=== PATIENT | male | born 1965 | race African-American/Black ===

== ENCOUNTER 2018-04-17 20:22 | Emergency (ER) | payer BC, OTHER ==
--- NOTE | 2018-04-17 20:25 | PDOC ---
History of Present Illness - General History Source: Patient Exam Limitations: No Limitations - History of Present Illness Initial Comments: 04/17/18 20:54 Patient is a 53 year old male with no significant past medical history who presents to the ED with complaints of chest discomfort that began x2 weeks ago. Patient reports chest discomfort that he states is a compression sensation that began x2 weeks ago and has shown no signs of subsiding. He reports sensation is only starts in the afternoon while he is resting. Patient reports being active and exercising regularly but denies any discomfort during that time. He reports feeling the sensation this evening, stating that he checked his heart rate during the episode and noticed a change, prompting him to come into the ED for further evaluation. Denies chest pain, Sob. Denies nausea, vomiting, Denies contact with sick individuals, out of state travelling. Denies fevers, chills. Denies trauma to affected area. Denies any other symptoms. Allergies: None Social history: No smoking. No alcohol. No illicit drugs. Surgical history: None PMD: Dr. Debby Chung <Urban Zazueta - Last Filed: 04/17/18 20:54> <Shira Palencia - Last Filed: 04/18/18 01:12> - General Chief Complaint: Irregular Heart Beat Stated Complaint: IRREGULAR HEART BEAT X 2 WEEKS Time Seen by Provider: 04/17/18 20:25 Past History <Urban Zazueta - Last Filed: 04/17/18 20:54> - Suicide/Smoking/Psychosocial Hx Smoking History: Never smoked <Shira Palencia - Last Filed: 04/18/18 01:12> - Past Medical History Allergies/Adverse Reactions: Allergies Allergy/AdvReac Type Severity Reaction Status Date / Time No Known Allergies Allergy Verified 04/17/18 20:24 Home Medications: Ambulatory Orders NK [No Known Home Medication] 08/25/15 Review of Systems - Review of Systems Able to Perform ROS?: Yes Comments:: 04/17/18 20:54 GENERAL/CONSTITUTIONAL: No fever or chills. No weakness. HEAD, EYES, EARS, NOSE AND THROAT: No change in vision. No ear pain or discharge. No sore throat. CARDIOVASCULAR: +Left chest discomfort. No chest pain or shortness of breath. RESPIRATORY: No cough, wheezing, or hemoptysis. GASTROINTESTINAL: No nausea, vomiting, diarrhea or constipation. GENITOURINARY: No dysuria, frequency, or change in urination. MUSCULOSKELETAL: No joint or muscle swelling or pain. No neck or back pain. SKIN: No rash NEUROLOGIC: No headache, vertigo, loss of consciousness, or change in strength/ sensation. ENDOCRINE: No increased thirst. No abnormal weight change. HEMATOLOGIC/LYMPHATIC: No anemia, easy bleeding, or history of blood clots. ALLERGIC/IMMUNOLOGIC: No hives or skin allergy. <Urban Zazueta - Last Filed: 04/17/18 20:54> *Physical Exam - Vital Signs Last Vital Signs Temp Pulse Resp BP Pulse Ox 97.7 F 62 16 155/60 97 04/17/18 20:25 04/17/18 20:25 04/17/18 20:25 04/17/18 20:25 04/17/18 20:25 - Physical Exam Comments: 04/17/18 20:55 GENERAL: Awake, alert, and fully oriented, in no acute distress HEAD: No signs of trauma EYES: PERRLA, EOMI, sclera anicteric, conjunctiva clear ENT: Auricles normal inspection, hearing grossly normal, nares patent, oropharynx clear without exudates. Moist mucosa NECK: Normal ROM, supple, no lymphadenopathy, JVD, or masses LUNGS: Breath sounds equal, clear to auscultation bilaterally. No wheezes, and no crackles HEART: Regular rate and rhythm, normal S1 and S2, no murmurs, rubs or gallops ABDOMEN: Soft, nontender, normoactive bowel sounds. No guarding, no rebound. No masses EXTREMITIES: Normal range of motion, no edema. No clubbing or cyanosis. No cords, erythema, or tenderness NEUROLOGICAL: Cranial nerves II through XII grossly intact. Normal speech, normal gait SKIN: Warm, Dry, normal turgor, no rashes or lesions noted. <Urban Zazueta - Last Filed: 04/17/18 20:54> ED Treatment Course - LABORATORY CBC & Chemistry Diagram: 04/17/18 20:30 04/17/18 20:30 - ADDITIONAL ORDERS Additional order review: 04/17/18 20:30 RBC 4.48 MCV 91.7 MCHC 33.2 RDW 13.1 MPV 8.2 Neutrophils % 48.9 Lymphocytes % 38.6 Monocytes % 9.3 Eosinophils % 2.3 Basophils % 0.9 <Urban Zazueta - Last Filed: 04/17/18 20:54> - LABORATORY CBC & Chemistry Diagram: 04/17/18 20:30 04/17/18 20:30 <Shira Palencia - Last Filed: 04/18/18 01:12> Medical Decision Making - Medical Decision Making 04/18/18 01:11 Pt comes with dropped heart beats and a feeling of chest tightness for 2 weeks on and off. Pt has normal EKG, vitals, exam and labs. He will follow with cardiology and follow for a holter monitor. <Shira Palencia - Last Filed: 04/18/18 01:12> *DC/Admit/Observation/Transfer - Attestations Scribe Attestion: 04/17/18 20:55 . Documentation prepared by Urban Zazueta, acting as medical technologist generalist for Shira Palencia MD. <Urban Zazueta - Last Filed: 04/17/18 20:54> <Shira Palencia - Last Filed: 04/18/18 01:12> Diagnosis at time of Disposition: Atypical chest pain, Dropped heart beats - Discharge Dispostion Disposition: HOME Condition at time of disposition: Stable - Referrals Referrals: Debby Chung MD [Primary Care Provider] - Ra Champagne MD [Staff Physician] - - Patient Instructions Printed Discharge Instructions: DI for Ambulatory Cardiac Monitoring, DI for Atypical Chest Pain - Post Discharge Activity
[2018-04-17 20:29] VITALS: BP 155/60; PULSE 62; TEMP 97.7; BMI 29.8
[2018-04-17 20:50] LABS: BASO % 0.9 % (0-2.0); EOS % 2.3 % (0-4.5); HEMOGLOBIN 13.6 GM/dl (11.7-16.9); LYMPH % 38.6 % (8-40); MCH 30.4 pg (25.7-33.7); MCHC 33.2 g/dl (32.0-35.9); MEAN CELL VOLUME 91.7 fl (80-96); MEAN PLT VOLUME 8.2 fl (7.5-11.1); MONO % 9.3 % (3.8-10.2); NEUT % 48.9 % (42.8-82.8); PLATELET COUNT 188 K/MM3 (134-434); RBC 4.48 M/mm3 (4.00-5.60); RDW 13.1 % (11.9-15.9)
[2018-04-17 21:11] LABS: ALBUMIN 3.8 g/dl (3.5-5.0); ALK PHOS 48 U/L (32-92); ANION GAP 3 (8-16); BILIRUBIN,TOTAL 0.3 mg/dl (0.2-1.0); BLOOD UREA NITROGEN 21 mg/dl (7-18); CALCIUM 8.6 mg/dl (8.4-10.2); CHLORIDE 103 mmol/L (98-107); CO2 29 mmol/L (22-28); CREATININE 1.1 mg/dl (0.6-1.3); GLUCOSE,RANDOM 107 mg/dl (74-106); POTASSIUM 3.8 mmol/L (3.5-5.1); SGOT/AST 40 U/L (10-42); SGPT/ALT 25 U/L (10-40); SODIUM 135 mmol/L (136-145); TOT PROT 6.5 g/dl (6.4-8.3)
--- NOTE | 2018-04-18 14:00 | EKG ---
Test Reason : Blood Pressure : / mmHG Vent. Rate : 059 BPM Atrial Rate : 059 BPM P-R Int : 138 ms QRS Dur : 078 ms QT Int : 368 ms P-R-T Axes : 050 076 056 degrees QTc Int : 364 ms SINUS BRADYCARDIA OTHERWISE NORMAL ECG NO PREVIOUS ECGS AVAILABLE Confirmed by CARRILLO HARRISON MD ([id number]) on 04/18/2018 1:59:49 PM Referred By: BRENDA Confirmed By:CARRILLO HARRISON MD
== END 2018-04-17 21:27 | disposition home or self-care (01) ==
LOC: FER 20:22
DX: R07.89 Other chest pain (principal); R00.8 Other abnormalities of heart beat
CPT/HCPCS: 36415; 80053; 82550; 82553; 84484; 85025; 93005; 99282-25